=== PATIENT | female | born 1990 | race Asian ===

== ENCOUNTER 2017-01-23 22:27 | Emergency (ER) | payer BC ==
[~2017-01-23] VITALS: Ht 162.6 cm; Wt 52.2 kg
[2017-01-23] MEDS ORDERED: SILVER SULFADIAZINE CREAM 25 GM TUBE ONE (22:31)
[2017-01-23] MEDS ORDERED: TDAP [DIPH/PERTUSSIS/TET] 0.5 ML VIAL IM ONE ×2 (22:32→23:00)
[2017-01-23] MEDS ORDERED: HYDROCODONE/APAP 5/325MG 1 EACH TABLET ONE (22:52)
[2017-01-23] MEDS ORDERED: SILVER SULFADIAZINE CREAM 25 GM TUBE TP ONE (23:00)
[2017-01-23] MEDS ORDERED: HYDROCODONE/APAP 5/325MG 1 EACH TABLET PO ONE (23:00)
[2017-01-23 23:08] VITALS: BP 124/65
== END 2017-01-23 22:59 | disposition home or self-care (01) ==
LOC: ER 22:32
DX: T21.21XA Burn of second degree of chest wall, initial encounter (principal); X11.8XXA Contact with other hot tap-water, initial encounter; Y93.89 Activity, other specified; Y99.8 Other external cause status; Y92.89 Other specified places as the place of occurrence of the external cause
CPT/HCPCS: 90715; A4606; A6402; Z7610